=== PATIENT | female | born 1955 | race Two or more races ===

== ENCOUNTER 2023-12-22 20:13 | Emergency (ER) | payer MEDICARE, MEDICAID, SELFPAY ==
[2023-12-22 20:14] VITALS: BMI 35.5
--- NOTE | 2023-12-22 21:29 | PC.NURSE ---
CALLED PATIENT IN LOBBY AND OUTSIDE, NO ANSWER RECEIVED FROM PATIENT.
--- NOTE | 2023-12-22 21:50 | PC.NURSE ---
CALLED PATIENT IN LOBBY, RESTROOM, AND OUTSIDE, NO ANSWER RECEIVED FROM PATIENT.
== END 2023-12-22 21:53 | disposition left against medical advice (07) ==
LOC: SERX 21:59
PROVIDERS: Emergency Provider Emergency Medicine
DX: Z53.21 Procedure and treatment not carried out due to patient leaving prior to being seen by health care provider (principal)

== ENCOUNTER 2025-01-22 14:12 | Emergency (ER) | payer MEDICARE, MEDICAID, SELFPAY ==
[2025-01-22 14:48] VITALS: BP 169/80; PULSE 72; RESP 18; TEMP 36.7; O2SAT 95; BMI 36.5
--- NOTE | 2025-01-22 14:59 | PD.EDSKIN ---
ED Skin Abcess FB-RME/HPI General Chief complaint: General Adult/Misc Complain Stated complaint: BOIL, CREASE BETWEEN PERINEUM & L) THIGH Time Seen by Provider: 01/22/25 14:49 Source: patient Arrival date/time: 01/22/25 14:12 69-year-old female with no known medical history presents to the emergency room with a chief complaint of an abscess to her left perineum thigh area x 4 days Mode of arrival: ambulatory Limitations: no limitations Related Data Home Medications ?Medication ?Instructions ?Recorded ?Confirmed lisinopril 40 mg tablet 40 ml PO QDAY #0 tabs 04/03/16 04/29/19 aspirin 81 mg chewable tablet 81 mg PO QDAY 11/10/17 04/29/19 escitalopram oxalate 20 mg tablet 20 mg PO QDAY 11/10/17 04/29/19 (Lexapro) insulin detemir U-100 100 unit/mL 30 unit subcut BID 11/10/17 04/29/19 subcutaneous solution (Levemir U-100 Insulin) liraglutide 0.6 mg/0.1 mL (18 mg/3 1.8 unit subcut QDAY 11/10/17 04/29/19 mL) subcutaneous pen injector (Victoza 2-Johnny) sitagliptin phos 50 mg-metformin 1 tab PO BID 11/10/17 04/29/19 ER 1,000 mg tablet,extend rel 24h mp (Janumet XR) Previous Rx's ?Medication ?Instructions ?Recorded hydrocodone 5 mg-acetaminophen 325 1 tab PO Q4H PRN pain #30 tabs 04/28/22 mg tablet nitroglycerin 2 % transdermal 1 ea topical BID #30 grams 04/28/22 ointment (Nitro-Bid) clindamycin HCl 300 mg capsule 300 mg PO TID 7 days #21 caps 01/22/25 Allergies Allergy/AdvReac Type Severity Reaction Status Date / Time adhesive tape Allergy Severe RASH Verified 01/22/25 14:32 ITCHING codeine Allergy Severe DIFF Verified 01/22/25 14:32 BREATHING, SWELLING IN THRAOT morphine Allergy Severe DIFF Verified 01/22/25 14:32 BREATHING, RASH mushroom Allergy Severe DIFF Verified 01/22/25 14:32 BREATHING prochlorperazine Allergy Severe PANIC, Verified 01/22/25 14:32 DIFF BREATHING Sulfa (Sulfonamide Allergy Severe UNSURE OF Verified 01/22/25 14:32 Antibiotics) REACTION HASNT HAD IT SINCE CHILDHOOD latex Allergy Hives Verified 01/22/25 14:32 hydrocodone AdvReac Intermediate Gastrointestinal Verified 01/22/25 14:32 Upset Review of Systems Review of Systems Systems Reviewed: All systems reviewed, normal except as documented Constitutional Constitutional: Reports system reviewed and no additional complaints, except as documented, Denies fatigue, Denies fever(s), Denies headache(s) and Denies weakness Eyes Eyes: Reports system reviewed and no additional complaints, except as documented, Denies blurry vision and Denies change in vision ENT Ears, Nose, Mouth, and Throat: Reports system reviewed and no additional complaints, except as documented, Denies otalgia, Denies headache(s), Denies nasal congestion, Denies throat swelling and Denies vertigo Cardiovascular Cardiovascular: Reports system reviewed and no additional complaints, except as documented, Denies chest pain, Denies dyspnea and Denies dyspnea on exertion Respiratory Respiratory: Reports system reviewed and no additional complaints, except as documented, Denies chest congestion, Denies cough, Denies dyspnea, Denies dyspnea on exertion and Denies wheezing Gastrointestinal Gastrointestinal: Reports system reviewed and no additional complaints, except as documented, Denies abdominal pain, Denies cramping, Denies nausea and Denies vomiting Genitourinary Genitourinary: Reports system reviewed and no additional complaints, except as documented Musculoskeletal Musculoskeletal: Reports system reviewed and no additional complaints, except as documented and Denies back pain Integumentary/Breasts Skin/Breast: Reports system reviewed and no additional complaints, except as documented and Reports wounds Neurologic Neurologic: Reports system reviewed and no additional complaints, except as documented, Denies confusion, Denies headache(s), Denies lack of coordination, Denies vertigo and Denies weakness Psychiatric Psychiatric: Reports system reviewed and no additional complaints, except as documented, Denies anxiety, Denies confusion, Denies depression, Denies paranoia, Denies suicidal ideation and Denies tactile hallucinations Endocrine Endocrine: Reports system reviewed and no additional complaints, except as documented and Denies fatigue Hematologic/Lymphatic Hematologic/Lymphatic: Reports system reviewed and no additional complaints, except as documented and Denies lymphadenopathy Allergic/Immunologic Allergic/Immunologic: Reports system reviewed and no additional complaints, except as documented, Denies throat swelling, Denies urticaria and Denies wheezing Past Medical History Past Medical History CARDIAC: Positive Hypercholesterolemia and Hypertension; Negative Cardiac Disorders or Congestive Heart Failure RESPIRATORY: Negative Chronic Obstructive Pulmonary Disease (COPD) or Asthma GENITOURINARY: Negative Renal Disease ENDOCRINE: Positive Diabetes Mellitus Type 2; Negative Diabetes Mellitus Type 1 HEMATOLOGIC: Negative Sickle Cell Disease PSYCHO/SOCIAL: Positive Anxiety OTHER HISTORY: Positive Blood Transfusions Surgical History SURGICAL: Positive Angiogram Social History SMOKING STATUS: Never smoker SUBSTANCE USE: does not use ED Exam General Limitations: Present no limitations General appearance: Present alert and in no apparent distress Head Head exam: Present atraumatic Eye Eye exam: Present normal appearance, PERRL and EOMI ENT ENT exam: Present normal exam, normal oropharynx and mucous membranes moist Neck Neck exam: Present normal inspection, full ROM and trachea midline Chest Chest inspection: Present normal inspection and symmetric chest wall rise Respiratory Respiratory exam: Present normal lung sounds bilaterally Cardiovascular Cardiovascular exam: Present regular rate, normal rhythm and normal heart sounds Abdominal Exam Abdominal exam: Present soft and normal bowel sounds Extremities Exam Extremities exam: Present normal inspection and full ROM Back Exam Back exam: Present normal inspection and full ROM Neurological Exam Neurological exam: Present alert, oriented X3 and CN II-XII intact Psychiatric Psychiatric exam: Present normal affect and normal mood Skin Skin exam: Present warm, dry, intact and normal color Expanded Skin Exam Type of lesion: Present abscess Distribution: Present other (Groin) Description: Present tenderness, erythematous and swelling; Absent discharge Body image:  1. There is a small 2.5 cm erythemic abscess to the groin area Course Quality Measures none Orders Category Date Time Status Incision and Drainage Set Up X1 Care 01/22/25 14:56 Completed Set Up Suture Tray STAT Care 01/22/25 14:56 Completed Wound Care NOW Care 01/22/25 14:56 Completed Lidocaine 1% 20 ml [Xylocaine 1% 20 ML] Med 01/22/25 14:56 Discontinued 20 ml INFL X1 ONE Vital Signs Vital signs: Vital Signs Temperature 98.1 F 01/22/25 14:48 Pulse Rate 72 01/22/25 14:48 Respiratory Rate 18 01/22/25 14:48 Blood Pressure 169/80 H 01/22/25 14:48 Pulse Oximetry (%) 95 01/22/25 14:48 Oxygen Delivery Method Room Air 01/22/25 14:48 PROCEDURES: Abscess I/D Site: other (Groin) Side (if applicable): left Local Anesthetic: lidocaine 1% Amount of anesthesia used (mL): 4 Technique: incised with #11 blade Amount of fluid expressed (mL): 4 Packing used?: iodoform Skin / Abscess / Foreign Body MDM Narrative MDM Narrative:: 69-year-old female with no known medical history presents to the emergency room with a chief complaint of an abscess to her left perineum thigh area x 4 days Patient is hemodynamically stable and in no apparent distress. Patient is afebrile not tachycardic not tachypneic. Physical examination shows tenderness erythema and mild swelling to the patient's left groin area. PROCEDURE: incision and drainage of abscess PROCEDURE: A timeout protocol was performed prior to initiating the procedure. The area was prepared with Betadine and draped in the usual, sterile manner. The site was anesthetized with 1% lidocaine. A linear incision along the local skin lines was made and the purulent material expressed. The abscess was explored thoroughly and sequestered pockets were opened. Bleeding was minimal. Packing: none Followup: The patient tolerated the procedure well without complications. Standard post-procedure care is explained and patient was educated to follow-up with his primary care provider in the next 24 to 48 hours or return to the emergency room for any evidence of worsening signs or symptoms. Patient data External records reviewed:: [facility] previous records Clinical information provided by:: patient Social determinants that could affect healthcare access:: none Patient has the following chronic illnesses:: No chronic illness How is presenting disease/condition affected by chronic disease/condition?: no chronic disease Evaluation data The following diagnostics were reviewed and interpreted by me:: lab results and radiology exam(s) Lab and/or radiology exams considered but not ordered:: Labs and radiology exams considered and ordered Interpretation Summary: N/A Medications / Prescriptions Medications or Prescriptions considered but not ordered:: Medication given Medication administrations:: Medication Administration History Discontinued Medications Lidocaine HCl (Lidocaine Hcl 1% 20 Ml Vial) 20 ml INFL X1 ONE Stop: 01/22/25 14:57 Last Admin: 01/22/25 15:19 Dose: 20 ml Documented By: ERLINDA Comments: GIVEN TO PROVIDER. Medication given Consultations Consultation(s) initiated? (list below): No Diagnosis Skin/Abscess Differential Diagnosis: abscess of skin or subcutaneous tissue, cellulitis and contact dermatitis Most likely diagnosis given after review of the tests above:: Abscess of skin or subcutaneous tissue Admission Indicated Admission indicated?: not indicated Admission Request Was there a request for admission?: No Disposition Plan Disposition Plan: Discharge Discharge Attestation Discharge Attestation: The patient and all family members were given an opportunity to ask questions and understood the discharge instructions. Discharge instructions specifically effects, indications for sooner follow up or return to the emergency department, and the expected course of current diagnosis. Patient condition: Stable Discharge Plan Plan Patient Disposition: HOME (Self Care) Discharge Disposition comment: Stable Prescriptions/Referrals Prescriptions/Med Rec: New clindamycin HCl 300 mg capsule 300 mg PO TID 7 Days Qty: 21 0RF No Action lisinopril 40 MG tablet 40 ml PO QDAY Qty: 0 aspirin 81 mg Tablet,Chewable 81 mg PO QDAY escitalopram oxalate [Lexapro] 20 mg Tablet 20 mg PO QDAY Levemir U-100 Insulin 100 unit/mL Solution 30 unit SUB-Q BID Victoza 2-Johnny 0.6 mg/0.1 mL (18 mg/3 mL) Pen Injector 1.8 unit Sub-Q QDAY Janumet XR 50-1,000 mg Tablet, Er Multiphase 24 Hr 1 tab PO BID hydrocodone-acetaminophen 5-325 mg tablet 1 tab PO Q4H MDD 6 PRN (Reason: pain) Qty: 30 0RF Nitro-Bid 2 % ointment 1 ea topical BID Qty: 30 0RF Problem List Clinical Impression: Abscess of skin AND/OR subcutaneous tissue, Encounter for incision and drainage procedure Patient/Caregiver Discharge Instructions Education Materials: Abscess Drainage, ED Abscess, Incision And Drainage Additional Instructions: Please follow-up with your primary care provider in the next 24 to 48 hours Your abscess was drained. Antibiotics were sent to your pharmacy please pick them up and take them as indicated For any evidence of worsening signs or symptoms return to the emergency room immediately Print Language: Estonian Stand Alone Forms: [employer] Award Info., Work/School Release, Patient Portal Info Letter PA/LOADING MACHINE OPERATOR Supervising Physician HUGO/VIRGEN Supervising Physician: Dr. Sorto
[2025-01-22] MEDS: LIDOCAINE HCL 1% 20 ML VIAL INFL (15:19)
== END 2025-01-22 16:29 | disposition home or self-care (01) ==
LOC: SERX 16:00
PROVIDERS: Emergency Provider Family Medicine; PCP Family Medicine
DX: L02.215 Cutaneous abscess of perineum (principal)
CPT/HCPCS: 10060; 99284; J3490